=== PATIENT | male | born 1960 | race African-American/Black ===

== ENCOUNTER 2021-10-25 04:57 | Day surgery (SDC) | payer OTHER, BC ==
[2021-10-24 17:42] VITALS: BMI 47.2
[2021-10-25] MEDS ORDERED: DEXMEDETOMIDINE HCL 200 MCG/2 ML IVPB ONE ×2 (09:12)
[2021-10-25] MEDS ORDERED: MIDAZOLAM HCL 2 MG/2 ML SINGLE DOSE VIAL ONE (09:57)
[2021-10-25] MEDS ORDERED: ceFAZolin SODIUM 1 GM VIAL ONE (10:02)
[2021-10-25] MEDS ORDERED: ceFAZolin SODIUM 1 GM VIAL IVPB ONE (10:05)
[2021-10-25 10:43] VITALS: RESP 18
[2021-10-25 12:51] VITALS: BP 123/77; PULSE 74; TEMP 98
== END 2021-10-25 12:30 | disposition home or self-care (01) ==
LOC: JASU-SURG 04:57
PROVIDERS: ATTEND Urology
PROC: 0TF4XZZ Fragmentation in Left Kidney Pelvis, External Approach (ICD-10-PCS; principal; 2021-10-25 09:00)
DX: N20.0 Calculus of kidney (principal); R31.29 Other microscopic hematuria

== ENCOUNTER 2022-07-19 14:47 | Emergency (ER) | payer OTHER, BC ==
[2022-07-19 14:53] VITALS: BP 147/90; PULSE 108; RESP 18; TEMP 98; BMI 47.9
== END 2022-07-19 19:48 | disposition left against medical advice (07) ==
LOC: JER 14:47
DX: R07.9 Chest pain, unspecified (principal); R05.9 Cough, unspecified; B20 Human immunodeficiency virus [HIV] disease; R09.81 Nasal congestion; Z53.21 Procedure and treatment not carried out due to patient leaving prior to being seen by health care provider; Z20.822 Contact with and (suspected) exposure to COVID-19
CPT/HCPCS: 0241U-QW; 71250-TC; 99284-25